=== PATIENT | female | born 1995 | race Caucasian/White ===

== ENCOUNTER → 2019-09-09 | Outpatient (CLI) | payer OTHER ==
[2019-09-14 09:08] LABS: ANA INTERPRETATION Negative (Negative)
== END ==
LOC: M.RAD 15:59
PROVIDERS: Nurse Practitioner Family
DX: M48.07 Spinal stenosis, lumbosacral region (principal); M77.9 Enthesopathy, unspecified; G89.29 Other chronic pain

== ENCOUNTER → 2019-10-05 | Outpatient (CLI) | payer OTHER ==
[~2019-10-05] MED LIST: BUSPAR PO; CYCLOBENZAPRINE5 MG PO; MELOXICAM15 MG PO; NEURONTIN 300M300 M2 PO; TIZANIDINE HCL2 M1 PO; TRI SPRINTEC; ZOLOFT100 MG PO
== END ==
LOC: M.PC 03:01
DX: M47.816 Spondylosis without myelopathy or radiculopathy, lumbar region (principal); M25.552 Pain in left hip